=== PATIENT | female | born 1980 | race African-American/Black ===

== ENCOUNTER 2021-09-20 09:13 | Emergency (ER) | payer OTHER ==
[~2021-09-20] VITALS: Ht 175.3 cm; Wt 116.0 kg
[2021-09-20 09:58] LABS: BASOPHILS % 0.8 % (0.0-2.0); EOSINOPHILS % 2.5 % (0.0-5.0); HEMATOCRIT. 43.4 % (36.0-48.0); HEMOGLOBIN. 14.9 g/dL (12.0-16.0); LYMPHOCYTES % 8.5 % (20.0-50.0); MEAN CORPUSCULAR HEMOGLOBIN 37.9 pg (28.0-32.0); MEAN CORPUSCULAR VOLUME 110.3 fL (81.0-99.0); MONOCYTES % 4.9 % (2.0-8.0); NEUTROPHILS % 83.3 % (40.0-76.0); PLATELET 187 x1000/uL (130-400); RED BLOOD CELL COUNT 3.93 mill/uL (4.2-5.4)
[2021-09-20] MEDS ORDERED: SODIUM CHLORIDE 0.9% 500 ML IV ONE (10:00)
[2021-09-20] MEDS ORDERED: LORAZEPAM 2MG/ML CPJ IV ONE (10:00)
[2021-09-20 10:05] LABS: CHLORIDE 107 mEq/L (98-107)
[2021-09-20 10:09] LABS: HCG SCREEN NEGATIVE
[2021-09-20 10:35] LABS: PLATELET ESTIMATE NORMAL
[2021-09-20 11:21] LABS: CANNABINOID URINE SCREEN NEGATIVE (NEGATIVE); METHADONE URINE SCREEN NEGATIVE (NEGATIVE); OPIATES URINE SCREEN NEGATIVE (NEGATIVE); PHENCYCLIDINE URINE SCREEN NEGATIVE (NEGATIVE)
[2021-09-20 11:22] LABS: *AMPHETAMINES SCREEN URINE NEGATIVE (NEGATIVE); *BARBITURATES SCREEN URINE NEGATIVE (NEGATIVE); *BENZODIAZEPINES SCREEN URINE NEGATIVE (NEGATIVE); *COCAINE SCREEN URINE NEGATIVE (NEGATIVE)
[2021-09-20] MEDS ORDERED: ASPI-1497 MT (12:52)
[2021-09-20] MEDS ORDERED: HYDR-3782 MT (12:52)
[2021-09-20] MEDS ORDERED: ASPIRIN 81MG TABLET PO ONE (13:30)
[2021-09-20 13:48] VITALS: BP 135/80
== END 2021-09-20 14:33 | disposition home or self-care (01) ==
LOC: ER 09:13
DX: F41.0 Panic disorder [episodic paroxysmal anxiety] (principal); R07.2 Precordial pain; R03.0 Elevated blood-pressure reading, without diagnosis of hypertension; R74.01 Elevation of levels of liver transaminase levels; E87.6 Hypokalemia; K76.0 Fatty (change of) liver, not elsewhere classified; Z79.82 Long term (current) use of aspirin
CPT/HCPCS: 36415; 71045; 76705; 80053; 80305; 83880; 84484; 84703; 85025; 85379; 93005; 96361; 96374; 99285; J2060; J7040